=== PATIENT | female | born 1950 | race Caucasian/White ===

== ENCOUNTER 2016-08-11 14:23 | Emergency (ER) | payer OTHER ==
[~2016-08-11] VITALS: Ht 165.1 cm; Wt 62.6 kg
[~2016-08-11 14:23] MED LIST: AMBIEN10 M1 JT; CYCLOBENZAPRINE5 M3 PO; EFFEXOR XR150 M1 PO; HYDROCODONE BIT1 T11 PO; KLONOPIN1 M1 PO; VICODIN ES 7501 TAB PO; VISTARIL25 MG PO
[2016-08-11] MEDS ORDERED: GUAIFENESIN600 MG PO (14:29)
[2016-08-11] MEDS ORDERED: DEPAKOTE500 M1 PO (14:29)
[2016-08-11 15:09] LABS: BASO % 0.3 % (0.0-1.0); EOS # 0.1 10*3/uL (0.0-0.4); HEMATOCRIT 40.7 % (37.0-47.0); HEMOGLOBIN 13.3 g/dl (12.0-16.0); IG # 0.1 10*3/uL (0.0-0.1); LYMPH # 2.4 10*3/uL (1.3-4.4); LYMPH % 25.8 % (27.0-41.0); MEAN CELL VOLUME 91.5 fl (81.0-99.0); MEAN CORPUSCULAR HGB 29.9 pg (27.0-31.0); MEAN CORPUSCULAR HGB CONC 32.7 g/dl (33.0-37.0); MEAN PLATELET VOLUME 11.1 fl (9.6-12.3); NEUT # 5.8 10*3/uL (2.3-7.9); NEUT % 61.1 % (47.0-73.0); PLATELET COUNT AUTOMATED 252 10*3/uL (130-400); RED BLOOD COUNT 4.45 10*6/uL (4.10-5.10); WHITE BLOOD COUNT 9.5 10*3/uL (4.8-10.8)
[2016-08-11 15:25] LABS: BUN 8 mg/dl (7-24); CARBON DIOXIDE 25 mmol/L (21-32); CHLORIDE 108 mmol/L (98-107); EST GLOM FILT AFRICAN AMERICAN > 60 ml/min; GLUCOSE 150 mg/dL (65-99); POTASSIUM 3.9 mmol/L (3.5-5.1); SODIUM 144 mmol/L (136-145)
[2016-08-11 15:52] VITALS: BP 158/93
[2016-08-11] MEDS ORDERED: ZITHROMAX250 MG PO (16:26)
[2016-08-11] MEDS ORDERED: DELTASONE20 M1 PO (16:26)
== END 2016-08-11 17:44 | disposition home or self-care (01) ==
LOC: ED 14:23
PROVIDERS: Emergency Medicine
DX: J20.9 Acute bronchitis, unspecified (principal); F17.200 Nicotine dependence, unspecified, uncomplicated; Z88.0 Allergy status to penicillin; Z88.1 Allergy status to other antibiotic agents; Z88.6 Allergy status to analgesic agent; Z79.899 Other long term (current) drug therapy

== ENCOUNTER → 2016-10-15 | Outpatient (CLI) | payer OTHER ==
[~2016-10-15] MED LIST changes: +DELTASONE20 M1 PO; +DEPAKOTE500 M1 PO; +GUAIFENESIN600 MG PO; +ZITHROMAX250 MG PO
[2016-10-15 11:15] LABS: HEMATOCRIT 40.8 % (37.0-47.0); HEMOGLOBIN 13.6 g/dl (12.0-16.0); MEAN CELL VOLUME 91.1 fl (81.0-99.0); MEAN CORPUSCULAR HGB 30.4 pg (27.0-31.0); MEAN CORPUSCULAR HGB CONC 33.3 g/dl (33.0-37.0); MEAN PLATELET VOLUME 10.3 fl (9.6-12.3); RED BLOOD COUNT 4.48 10*6/uL (4.10-5.10); RED CELL DISTRI WIDTH 13.4 % (0-14.5); WHITE BLOOD COUNT 7.9 10*3/uL (4.8-10.8)
[2016-10-15 11:41] LABS: ALBUMIN 3.7 gm/dl (3.1-4.5); ALKALINE PHOSPHATASE 65 U/L (45-117); BILIRUBIN, DIRECT < 0.1 mg/dL (0.0-0.2); BILIRUBIN, TOTAL 0.2 mg/dl (0.2-1.0); SGOT/AST 19 IU/L (3-35); SGPT/ALT 26 U/L (12-78); TOTAL PROTEIN 6.9 gm/dL (6.4-8.2)
[2016-10-19 00:09] LABS: HEPATITIS C QNT HCV Not Detected IU/mL (.)
== END | disposition home or self-care (01) ==
LOC: LAB 10:36
PROVIDERS: Psychiatry & Neurology Psychiatry
DX: F31.81 Bipolar II disorder (principal); Z86.19 Personal history of other infectious and parasitic diseases

== ENCOUNTER → 2017-01-16 | Outpatient (CLI) | payer OTHER | END | disposition home or self-care (01) | LOC: LAB 15:52 | DX: F31.81 Bipolar II disorder (principal) ==

== ENCOUNTER → 2017-05-22 | Outpatient (CLI) | payer OTHER ==
[2017-05-22 13:22] LABS: HEMATOCRIT 42.9 % (37.0-47.0); HEMOGLOBIN 14.1 g/dl (12.0-16.0); MEAN CELL VOLUME 90.9 fl (81.0-99.0); MEAN CORPUSCULAR HGB 29.9 pg (27.0-31.0); MEAN CORPUSCULAR HGB CONC 32.9 g/dl (33.0-37.0); MEAN PLATELET VOLUME 10.8 fl (9.6-12.3); RED BLOOD COUNT 4.72 10*6/uL (4.10-5.10); RED CELL DISTRI WIDTH 13.2 % (0-14.5); WHITE BLOOD COUNT 8.5 10*3/uL (4.8-10.8)
[2017-05-22 13:50] LABS: ALBUMIN 3.9 gm/dl (3.1-4.5); ALKALINE PHOSPHATASE 82 U/L (45-117); BILIRUBIN, DIRECT < 0.1 mg/dL (0.0-0.2); SGOT/AST 36 IU/L (3-35); SGPT/ALT 35 U/L (12-78); TOTAL PROTEIN 7.5 gm/dL (6.4-8.2); VALPROIC ACID (DEPAKENE) 25.8 ug/ml (50-100)
== END | disposition home or self-care (01) ==
LOC: LAB 12:41
PROVIDERS: Psychiatry & Neurology Psychiatry
DX: F31.81 Bipolar II disorder (principal)

== ENCOUNTER 2017-07-01 15:14 | Emergency (ER) | payer OTHER ==
[~2017-07-01] VITALS: Ht 165.1 cm; Wt 62.6 kg
[2017-07-01 15:15] VITALS: BP 166/93
== END 2017-07-01 17:35 | disposition home or self-care (01) ==
LOC: ED 15:14
DX: S16.1XXA Strain of muscle, fascia and tendon at neck level, initial encounter (principal); F17.200 Nicotine dependence, unspecified, uncomplicated; Z88.0 Allergy status to penicillin; Z88.1 Allergy status to other antibiotic agents; Z88.6 Allergy status to analgesic agent; Z79.899 Other long term (current) drug therapy; V89.2XXA Person injured in unspecified motor-vehicle accident, traffic, initial encounter; Y93.89 Activity, other specified; Y92.413 State road as the place of occurrence of the external cause; Y99.8 Other external cause status

== ENCOUNTER 2018-05-20 10:41 | Emergency (ER) | payer OTHER ==
[~2018-05-20] VITALS: Ht 165.1 cm; Wt 54.4 kg
[2018-05-20 10:42] VITALS: BP 155/94
[2018-05-20] MEDS ORDERED: SEPTDS PO (11:56)
== END 2018-05-20 12:15 ==
LOC: ED 10:41
DX: L02.214 Cutaneous abscess of groin (principal); Z88.0 Allergy status to penicillin; Z88.6 Allergy status to analgesic agent; Z88.1 Allergy status to other antibiotic agents; Z79.899 Other long term (current) drug therapy; Z90.711 Acquired absence of uterus with remaining cervical stump

== ENCOUNTER → 2018-08-11 | Outpatient (CLI) | payer OTHER ==
[~2018-08-11] MED LIST changes: +SEPTDS PO
[2018-08-11 11:28] LABS: HEMOGLOBIN 13.8 g/dl (12.0-16.0); MEAN CELL VOLUME 99.3 fl (81.0-99.0); MEAN CORPUSCULAR HGB 31.9 pg (27.0-31.0); MEAN CORPUSCULAR HGB CONC 32.1 g/dl (33.0-37.0); MEAN PLATELET VOLUME 10.2 fl (9.6-12.3); RED BLOOD COUNT 4.33 10*6/uL (4.10-5.10); RED CELL DISTRI WIDTH 13.2 % (0-14.5); WHITE BLOOD COUNT 7.8 10*3/uL (4.8-10.8)
[2018-08-11 12:12] LABS: ALBUMIN 3.3 gm/dl (3.1-4.5); ALKALINE PHOSPHATASE 85 U/L (45-117); BILIRUBIN, DIRECT < 0.1 mg/dL (0.0-0.2); SGOT/AST 49 IU/L (3-35); SGPT/ALT 52 U/L (12-78); TOTAL PROTEIN 6.9 gm/dL (6.4-8.2)
[2018-08-11 12:17] LABS: VALPROIC ACID (DEPAKENE) 70.3 ug/ml (50-100)
== END | disposition home or self-care (01) ==
LOC: LAB 11:00
PROVIDERS: Psychiatry & Neurology Psychiatry
DX: F31.81 Bipolar II disorder (principal)

== ENCOUNTER → 2019-06-11 | Outpatient (CLI) | payer OTHER ==
[~2019-06-11] MED LIST changes: +CIPROFLOXACIN750 MG PO; +FLAGYL500 MG PO; +LISINOPRIL5 MG PO; +MAGNESIUM; +MELATONIN10 M2 PO; +MILK THISTLE; +MULTIVITAMIN PO; +VITAMIN C PO
== END | disposition home or self-care (01) ==
LOC: US 15:30
DX: R22.31 Localized swelling, mass and lump, right upper limb (principal)

== ENCOUNTER → 2019-06-17 | Outpatient (CLI) | payer OTHER ==
[2019-06-17 12:42] LABS: BASO # 0.1 10*3/uL (0.0-0.1); BASO % 0.6 % (0.0-1.0); EOS # 0.2 10*3/uL (0.0-0.4); EOS % 2.6 % (1.0-4.0); HEMOGLOBIN 13.9 g/dl (12.0-16.0); LYMPH # 2.2 10*3/uL (1.3-4.4); LYMPH % 26.4 % (27.0-41.0); MEAN CELL VOLUME 93.7 fl (81.0-99.0); MEAN CORPUSCULAR HGB 30.3 pg (27.0-31.0); MEAN CORPUSCULAR HGB CONC 32.3 g/dl (33.0-37.0); MEAN PLATELET VOLUME 10.8 fl (9.6-12.3); MONO # 0.9 10*3/uL (0.1-1.0); MONO % 10.2 % (3.0-9.0); NEUT % 59.8 % (47.0-73.0); PLATELET COUNT AUTOMATED 296 10*3/uL (130-400); RED BLOOD COUNT 4.59 10*6/uL (4.10-5.10); RED CELL DISTRI WIDTH 12.8 % (0-14.5); WHITE BLOOD COUNT 8.3 10*3/uL (4.8-10.8)
[2019-06-17 13:17] LABS: ALBUMIN 3.9 gm/dl (3.1-4.5); ALKALINE PHOSPHATASE 96 U/L (45-117); BUN 13 mg/dl (7-24); CHLORIDE 106 mmol/L (98-107); CREATININE 1.03 mg/dL (0.55-1.02); POTASSIUM 3.8 mmol/L (3.5-5.1); SGOT/AST 43 IU/L (3-35); SGPT/ALT 42 U/L (12-78); SODIUM 139 mmol/L (136-145); TOTAL PROTEIN 7.6 gm/dL (6.4-8.2); VALPROIC ACID (DEPAKENE) 4.2 ug/ml (50-100)
== END | disposition home or self-care (01) ==
LOC: LAB 12:14
PROVIDERS: Registered Nurse
DX: F31.9 Bipolar disorder, unspecified (principal)

== ENCOUNTER → 2019-10-04 | Outpatient (CLI) | payer OTHER | END | disposition home or self-care (01) | LOC: RAD 10:46 | DX: M25.551 Pain in right hip (principal) ==

== ENCOUNTER → 2020-01-01 | Outpatient (CLI) | payer OTHER | END | disposition home or self-care (01) | LOC: MRI 12:44 | DX: S46.911A Strain of unspecified muscle, fascia and tendon at shoulder and upper arm level, right arm, initial encounter (principal); M19.011 Primary osteoarthritis, right shoulder; M25.411 Effusion, right shoulder; X58.XXXA Exposure to other specified factors, initial encounter; Y93.89 Activity, other specified; Y92.89 Other specified places as the place of occurrence of the external cause; Y99.8 Other external cause status ==

== ENCOUNTER 2020-04-09 16:15 | Inpatient (IN) | payer OTHER ==
[~2020-04-09] VITALS: Ht 165.1 cm; Wt 57.6 kg
[~2020-04-09 16:15] MED LIST changes: -MILK THISTLE; +MILK THISTLE PO
[2020-04-09 16:20] VITALS: BP 133/78
--- NOTE | 2020-04-09 17:20 | NUR ---
OFFICER THOMAS HERE TO ASK PATIENT A QUESTION
[2020-04-09 17:35] LABS: BACTERIA 3+; BILIRUBIN NEGATIVE; BLOOD NEGATIVE (NEGATIVE); CLARITY CLEAR (CLEAR); COLOR DARK YELLOW (YELLOW); EPITHELIAL CELLS 16-20; GLUCOSE NEGATIVE; HYALINE CAST 21-30; KETONE 1+; LEUKO ESTERASE 1+ (NEGATIVE); NITRITE NEGATIVE (NEGATIVE); PH 5.5 (4.5-8.0); SPECIFIC GRAVITY 1.025 (1.001-1.030); URINE AMPHETAMINES > 1000 (1000ng/ml); URINE BARBITURATES < 200 (200ng/ml); URINE BENZODIAZEPINES < 200 (200ng/ml); URINE CANNABINOIDS (THC) > 50 (50ng/ml); URINE COCAINE < 300 (300ng/ml); URINE METHADONE < 300 (300ng/ml); URINE OPIATES < 300 (300ng/ml)
[2020-04-09 17:40] LABS: URINE PHENCYCLIDINE < 25 (25ng/ml)
--- NOTE | 2020-04-09 17:55 | NUR ---
PATIENT BEING SEEN BY DANIE SHETH
--- NOTE | 2020-04-09 18:01 | NUR ---
WILL DO EKG SOON PATIENT IS DONE BEING INTERVIEWED
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
[2020-04-09 18:18] LABS: BASO # 0.1 10*3/uL (0.0-0.1); BASO % 0.5 % (0.0-1.0); EOS # 0.1 10*3/uL (0.0-0.4); EOS % 0.9 % (1.0-4.0); HEMATOCRIT 40.7 % (37.0-47.0); LYMPH # 2.9 10*3/uL (1.3-4.4); LYMPH % 29.1 % (27.0-41.0); MEAN CELL VOLUME 92.1 fl (81.0-99.0); MEAN CORPUSCULAR HGB 29.2 pg (27.0-31.0); MEAN CORPUSCULAR HGB CONC 31.7 g/dl (33.0-37.0); MEAN PLATELET VOLUME 11.4 fl (9.6-12.3); MONO # 1.1 10*3/uL (0.1-1.0); MONO % 11.3 % (3.0-9.0); NEUT # 5.7 10*3/uL (2.3-7.9); NEUT % 57.9 % (47.0-73.0); PLATELET COUNT AUTOMATED 217 10*3/uL (130-400); RED BLOOD COUNT 4.42 10*6/uL (4.10-5.10); RED CELL DISTRI WIDTH 12.9 % (0-14.5); WHITE BLOOD COUNT 9.9 10*3/uL (4.8-10.8)
--- NOTE | 2020-04-09 18:25 | NUR ---
telephone call to the psych unit here and gave them a referral, all of her blood work is not back yet so when it is we will send them the rest of the information.
[2020-04-09 18:37] LABS: ALBUMIN 3.8 gm/dl (3.1-4.5); ALKALINE PHOSPHATASE 71 U/L (45-117); BUN 17 mg/dl (7-24); CHLORIDE 111 mmol/L (98-107); CREATININE 0.98 mg/dL (0.55-1.02); POTASSIUM 3.8 mmol/L (3.5-5.1); SGOT/AST 25 IU/L (3-35); SGPT/ALT 21 U/L (12-78); SODIUM 141 mmol/L (136-145); TOTAL PROTEIN 7.4 gm/dL (6.4-8.2)
[2020-04-09 18:38] LABS: ACETAMINOPHEN (TYLENOL) < 5.0 ug/ml (10-30); ETHYL ALCOHOL < 3.0 mg/dl (<3)
--- NOTE | 2020-04-09 19:00 | NUR ---
Per Whitney Whitehead no sitter needed at this time.
--- NOTE | 2020-04-09 19:06 | NUR ---
Transfer of care from Jane nayak.
[2020-04-09 20:08] VITALS: BP 133/71
--- NOTE | 2020-04-09 20:24 | NUR ---
DR COX ON UNIT. NOTIFIED OF ADMISSION. STATES SHE WILL SEE PT IN ED.
--- NOTE | 2020-04-09 21:45 | NUR ---
Per pt does not need treated for uti,
--- NOTE | 2020-04-09 21:46 | NUR ---
Report given to [facility] at this time.
--- NOTE | 2020-04-09 22:00 | NUR ---
PERMISSION FOR ADMISSION FROM [facility] RECIEVED. VERIFIED BY Regina ZUÑIGA RN
--- NOTE | 2020-04-09 22:00 | NUR ---
Per pt she is not on antibiotc and does want nicotine patch at this time.
--- NOTE | 2020-04-09 22:27 | NUR ---
Nicotine patch placed on left upper arm at this time.
--- NOTE | 2020-04-09 22:40 | NUR ---
Per pt does not need treated for uti,
--- NOTE | 2020-04-09 23:00 | NUR ---
NAV DURAN a 69 year old F admitted via wheel chair from the EMERGENCY ROOM as a voluntary admission. Arrived on unit at 2300PM. ALLERGIES: EES,PCN, TORADOL. Vital signs are: [id number] 148/82. The client signed the following forms with stated understanding: Authorization For The Release of Medical Information, Clothing List, Consent to Voluntary Admission and Hospitalization, Consent and Release Forms/Receipt of Rights, Acknowledgement of Advance Directive Information, Behavioral Health Consent Form, and Informed Consent of Medications. Admitted under the services of Dr. MICHELLE DUDLEY,[facility]. A search was conducted and hazardous articles were removed. Client was oriented to the unit. DIANDRA ATKINS
--- NOTE | 2020-04-09 23:08 | NUR ---
Report given to [facility] at this time.
--- NOTE | 2020-04-09 23:12 | NUR ---
Report given to Roxanne nayak from [facility].Pt taken to unit at this time and all belongings with nurse.
--- NOTE | 2020-04-09 23:12 | NUR ---
Family aware of pt going to [facility] at this time.
[2020-04-09] MEDS ORDERED: GUMMI BEAR MUL1 EACH PO (23:35)
[2020-04-09] MEDS ORDERED: IBU800 MG PO (23:38)
[2020-04-09 23:59] VITALS: BP 148/82
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
--- NOTE | 2020-04-10 01:06 | NUR ---
CLIENT CAME TO DESK ROLLING HEAD AND EYES SAYING "THEIR OUT THERE UP ON THE HILLSIDE". REASSURANCE AND EMOTIONAL SUPPORT PROVIDED. WILL CONTINUE TO MONITOR
--- NOTE | 2020-04-10 05:51 | NUR ---
DR LLOYD NOTIFIED OF HOME MEDS NEEDING ORDERED
--- NOTE | 2020-04-10 06:30 | NUR ---
SLEPT PAST 2AM.
[2020-04-10 06:48] LABS: ALKALINE PHOSPHATASE 64 U/L (45-117); BUN 21 mg/dl (7-24); CHLORIDE 110 mmol/L (98-107); CHOLESTEROL 156 mg/dL (<200); CREATININE 0.85 mg/dL (0.55-1.02); HDL CHOLESTEROL 53 mg/dl (40-60); LDL CHOLESTEROL 87 mg/dL (9-159); POTASSIUM 3.4 mmol/L (3.5-5.1); SGOT/AST 14 IU/L (3-35); SGPT/ALT 20 U/L (12-78); SODIUM 141 mmol/L (136-145); TOTAL PROTEIN 5.7 gm/dL (6.4-8.2); TRIGLYCERIDES 78 mg/dl (<150); VLDL CHOLESTEROL 16 mg/dL (6-40)
[2020-04-10 07:46] VITALS: BP 112/61
--- NOTE | 2020-04-10 09:55 | NUR ---
DR. BERMEO NOTIFIED OF ABNORMAL LABS POTASSIUM 3.4.
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
--- NOTE | 2020-04-10 10:56 | NUR ---
DR. ROPER ON UNIT TO ASSESS PT.
--- NOTE | 2020-04-10 11:32 | NUR ---
Contacted [facility] regarding this patient. They are not familiar with her and do not have any active cases for her at this time. discharge plan undecided.
--- NOTE | 2020-04-10 11:37 | NUR ---
IP 4 days deep per Patricia at [facility], NRD 04/13. Ref # [id number]
--- NOTE | 2020-04-10 11:51 | NUR ---
PT C/O LOW BACK PAIN 10/ PRN MOTRIN GIVEN PER ORDER.
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
--- NOTE | 2020-04-10 13:30 | NUR ---
PATIENT RESTING IN BED, THERAPY IN FOR SESSION. PATIENT COMPLAINING OF BEING DIZZY. OTHRO OBTAIN: LAYING 104/62, SITTING 110/68 AND STANDING 108/66. PATIENT ENCOURAGED TO DRINK MORE FLUIDS AND CHANGE POSITIONS SLOWER. EDUCATION PROVIDED AND EFFECTIVE.
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
--- NOTE | 2020-04-10 15:10 | NUR ---
Occupational Therapy evaluation completed on 3N with full evaluation to follow. Recommend occupational therapy per plan of care and return home upon discharge. Thank you for this referral. Jennifer Campo OTR/L
--- NOTE | 2020-04-10 15:42 | NUR ---
PM GROUP PT ATTENDED AFTERNOON GROUP THERAPY AND PARTICIPATED IN ANY ACTIVITY OFFERED. PT WAS PLEASANT AND TALKATIVE. PT EXPRESSED NO PARANOID DELUSIONS WHILE IN GROUP.
[2020-04-10 20:05] VITALS: BP 125/75
--- NOTE | 2020-04-10 22:23 | NUR ---
P-PARANOID DELUSIONS, VISUAL HALLUCINATIONS. I-PROVIDE 1:1 WITH THERAPEUTIC INTERVENTIONS. PRESENT REALITY AND REORIENT. ENCOURAGE MEDICATION COMPLIANCE AND EDUCATE. MONITOR SLEEP. R-PATIENT ALERT AND ORIENTED X4. DURING 1:1 PATIENT WAS LOOKING OUT OF WINDOW IN HALLWAY AND STATED TO THIS RN "IM JUST OVER HERE HAVING HALLUCINATIONS". WHEN QUESTIONED TO WHAT, PATIENT STATED "ITS THE WILD! THEY ARE WATCHING ME, HAVE YOU EVER SEEN FLASHLIGHTS WALKING AROUND, WELL THEY ARE RIGHT NOW, RIGHT OUTSIDE, THEY HAVE LEGS AND EVERYTHING". WHEN ASKED IF SHE UNDERSTANDS THAT SHE IS HAVING HALLUCINATIONS, PT THEN STATED "OH, THIS IS VERY REAL, THESE AREN'T HALLUCINATIONS AT ALL, ITS REAL! BEFORE I CAME HERE THE WILD WAS IN MY YARD CUTTING DOWN LILAC BUSHES SO THEY CAN HIDE IN THEM, THEY ALSO BUILT LITTLE HUTS/IGLOO TYPE THINGS IN MY YARD TO WATCH ME, THEY EVEN HAVE FLASH LIGHTS ON THEIR HEADS AND ON THEIR BELTS, ALL KINDS OF EQUIPMENT, AND YOU KNOW WHAT ELSE, SOMETIMES THEY PEE PEE IN MY BED". PT UNRECEPTIVE TO REALITY PRESENTATION OR REDIRECTION. PT OTHERWISE CALM, PLEASANT, AND INTERACTIVE THIS HS, ISOLATIVE TO SELF AT TIMES. PT DENIES SI/HI OR PAIN. PT MEDICATION COMPLIANT WITHOUT DIFFICULTY AFTER REVIEW. PT AMBULATORY WITH A STEADY GAIT, CONTINENT OF BOWEL AND BLADDER, INDEPENDENT IN ADLS. PT CURRENTLY LAYING DOWN WITH EYES CLOSED, RESPIRATIONS EASY AND REGULAR. NO DISTRESS NOTED. P-CONTINUE TO MONITOR MOOD AND BEHAVIORS. MAINTAIN Q 15 MIN CHECKS AND PRN FOR SAFETY.
--- NOTE | 2020-04-11 03:43 | NUR ---
24 HOUR CHART CHECK COMPLETED.
--- NOTE | 2020-04-11 05:34 | NUR ---
PATIENT OBSERVED ON Q 15 MIN CHECKS TO HAVE SLEPT APPROX 8 HOURS UNINTERRUPTED. NO DISTRESS NOTED.
[2020-04-11 06:58] VITALS: BP 119/61
--- NOTE | 2020-04-11 12:32 | NUR ---
P: DEPRESSED MOOD AND ANXIOUS, COMPLAINS OF NOT BEING ABLE TO SLEEP. IMPROVEMENT NOTED. I: ONE ON ONE FOR EMOTIONAL SUPPORT, EDUCATION OF SELF CARE AND DRINKING MORE FLUIDS. ENCOURAGED TO PARTICIPATE IN GROUP SESSIONS AND REORIENT TO REALITY NEEDED. R: EFFECTIVE. PATIENT IS ALERT X4, ABLE TO VOICE NEEDS. DENIES HALLUCINATIONS, DELUSIONS, HI/SI OR PAIN. DEPRESSED AND ANXIOUS. MEDICAITON COMPLAINT WITH EDUCATION PROVIDED. Q 15 MINUTE SAFETY CHECKS MAINTAINED. INDEPENDENT WITH ACTIVITIES OF DAILY LIVING. CONTINENT OF BOWEL AND BLADDER. SET UP FOR MEALS, INTAKES ARE GOOD WITH ADEQUATE FLUIDS. AMBULATORY WITH STEADY GAIT. P: CONTINUE TO MONITOR FOR HALLUCINATIONS, DELUSIONS. PROVIDE ONE ON ONE FOR EMOTIONAL SUPPORT, REORIENT TO REALITY AND ENCOURAGE GROUP PARTICIPATION.
--- NOTE | 2020-04-11 15:54 | NUR ---
Shift chart check completed.
--- NOTE | 2020-04-11 16:41 | NUR ---
PNEUMOCCOCAL VACCINE 0.5ML IN LEFT DELTOID AND TOLERATED WELL.
[2020-04-11 20:00] VITALS: BP 123/66
--- NOTE | 2020-04-11 23:42 | NUR ---
P-PARANOID DELUSIONS, VISUAL HALLUCINATIONS. I-PROVIDE 1:1 WITH THERAPEUTIC INTERVENTIONS. PRESENT REALITY AND REORIENT. ENCOURAGE MEDICATION COMPLIANCE AND EDUCATE. MONITOR SLEEP. R-PATIENT ALERT AND ORIENTED X4. PT CALM, PLEASANT, AND INTERACTIVE. PT SAT IN DINING ROOM COLORING AND WATCHING TV WITH PEERS AT BEGINNING OF SHIFT. PT STATED THAT SHE FEELS A LITTLE BETTER TODAY, THAT SHE HAS AVOIDED LOOKING OUT OF WINDOWS FOR THE MOST PART THROUGHOUT THE DAY BUT WHEN SHE DOES, SHE STILL SEES THE WILD WATCHING HER AND FLASHLIGHTS WALKING AROUND WITH LEGS AND FEET. PT CONTINUES TO BE UNRECEPTIVE TO REALITY PRESENTATION AND STATES "THIS IS VERY REAL, ITS NOT BAD WHILE IM HERE THOUGH, NOT MANY WATCH ME, THERE IS WAY MORE OF THEM THAT WATCHES ME FROM AT HOME, THE WILD". PT DENIES SI/HI, ANXIETY, OR PAIN. PT MEDICATION COMPLIANT WITHOUT DIFFICULTY AFTER REVIEW. PT AMBULATORY WITH A STEADY GAIT, CONTINENT OF BOWEL AND BLADDER, INDEPENDENT IN ADLS. PT CURRENTLY LAYING DOWN WITH EYES CLOSED, RESPIRATIONS EASY AND REGULAR. NO DISTRESS NOTED. P-CONTINUE TO MONITOR MOOD AND BEHAVIORS. MAINTAIN Q 15 MIN CHECKS AND PRN FOR SAFETY.
--- NOTE | 2020-04-12 05:51 | NUR ---
PATIENT OBSERVED ON Q 15 MIN CHECKS TO HAVE SLEPT APPROX 10 HOURS THROUGHOUT THE NIGHT UNINTERRUPTED. NO DISTRESS NOTED.
--- NOTE | 2020-04-12 05:59 | NUR ---
24 HOUR CHART CHECK COMPLETED.
[2020-04-12 07:52] VITALS: BP 142/74
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
[2020-04-12 19:47] VITALS: BP 148/66
--- NOTE | 2020-04-12 22:38 | NUR ---
24 HR chart check completed.
--- NOTE | 2020-04-13 00:46 | NUR ---
PT WAS IN DINING ROOM READING AND LOOKING AT A MAGAZINE WITH OTHER PATIENTS. pLEASANT AND INTERACTIVE WITH BOTH STAFF AND PEERS. ATE SNACK AND WENT TO BED. WAS MED COMPLIANT. STATES SHE FEELS BETTER. NO HALLUCINATIONS OR DELUSIONS NOTED. NO SI/HI NOTED. HAS BEEN RESTING IN BED WITH EYES CLOSED SINCE 2129. WILL CONTINUE TO OBSERVEAND MONITOIR..ENCOURAGE MED COMPLIANCE AND 1:1.
--- NOTE | 2020-04-13 06:08 | NUR ---
PATIENT HAS SLEPT 8 HOURS.
--- NOTE | 2020-04-13 07:30 | NUR ---
OT NOTE Prior to OT session, therapist called U and talked to nurse Jen and got permission to treat pt. RUBBER TIRE AND TUBES SUPERVISOR and nursing both present for observation only. Upon arrival pt was sitting in chair in the dining hernandez agreeable to 15 minute OT session. Identified by name and date of birthwith no complaints. Functional mobility from dining hernandez to bedroom bathroom CGA without assistive device. Pt stood sink side unsupported to wash hands and face at CGA. Pt was able to bend at waist and pick ADL objects off ground in wash basin. Stand balance good-. Transferring on and off toilet CGA. Functional mobility from bathroom back to dining hernandez CGA. Pts dynamic stand balance was challenged by weight shifting/crossing midline at CGA, however while crossing over to right side pt became off balance requiring Ferdinand to correct. Balance F-. Pt left in dining hernandez with MHW present. Continue d/c recommended home. THO Peña/WILMAN Hutchins/Cheri
[2020-04-13 07:52] VITALS: BP 142/74
--- NOTE | 2020-04-13 08:30 | NUR ---
Treatment Plan meeting was held this a.m. with Dr. Seymour, FELIPE Samaniego, RN, AT, SUPERVISOR SAWING AND ASSEMBLY-S and Covering Machine Operator Helper. Plan for discharge at the end of the week. Pt. will return home at discharge.
--- NOTE | 2020-04-13 11:35 | NUR ---
AM GROUP PT WAS PRESENT FOR MORNING GROUP THERAPY SITTING AT A TABLE COLORING AND SOCIALIZING WITH NURSING STUDENTS. CONVERSATION WAS APPROPRIATE AND IN CONTEXT. PT EXPRESSED NO A V HALLUCINATIONS WHILE IN GROUP.
--- NOTE | 2020-04-13 12:53 | NUR ---
Spoke to Finn hein [facility] regarding CCR. IP 2 additional days deep, NRD 04/15.
--- NOTE | 2020-04-13 15:37 | NUR ---
PM GROUP PT ATTENDED AFTERNOON GROUP THERAPY AND PARTICIPATED BY PLAYING [employer] AND SOCIALIZING WITH NURSING STUDENTS. PT EXPRESSED NO PARANOIA OR HALLUCINATIONS WHILE IN GROUP.
--- NOTE | 2020-04-13 18:06 | NUR ---
PT A&OX4. STABLE MOOD. CALM AND INTERACTIVE WITH STAFF, PEERS, AND NURSING STUDENTS. NO HALLUCINATIONS OR DELUSIONS NOTED THIS SHIFT. NO TEARFUL EPISODES NOTED. PT WAS ATTEMPTING TO CALM ANOTHER PT AND DANCING WITH A PEER IN THE DINNINGROOM AND HALLWAY. 1:1 PROVIDED. BEHAVIORS MONITORED WITH Q15 MINUTE SAFETY CHECKS. MEDICATION COMPLIANT WITHOUT DIFFICULTY. CONTINUE TO MONITOR BEHAVIORS WITH Q15 MINUTE SAFETY CHECKS AND PROVIDE 1:1 FOR THERAPEUTIC COMMUNICATION. SEE [facility] FLOWSHEET FOR SPECIFIC MONITORING.
[2020-04-13 19:08] VITALS: BP 142/82
--- NOTE | 2020-04-13 22:53 | NUR ---
Patient alert and oriented x4, Mood calm,cooperative but isolative at times. Patient denies any SI/HI or hallucinations. No s/s of any responding to internal stimuli noted at this time. Patient compliant with HS medications without any difficulty. Provided 1:1 for emotional support. Redirected/reoriented when needed. Plan to continue to encourage medication compliance. Also continue to provide emotional support and continue to redirect/reorient when needed/appropriate. Will also monitor moods/behaviors. Q 15 minute safety checks continued and maintained. See [facility] flowsheet for further documentation.
--- NOTE | 2020-04-13 23:49 | NUR ---
Medicated with Motrin po prn for c/o chronic lower back pain rating 10/10. Will monitor effectiveness.
--- NOTE | 2020-04-14 06:36 | NUR ---
Patient slept approx. 5 hours throughout shift. Q 15 minute safety checks continued and maintained.
--- NOTE | 2020-04-14 07:20 | NUR ---
Prior to Ot session therapist called U and talked to nurse doyle to get permission to treat pt. TELEGRAPH OFFICE ROUTE AIDE and nursing both present for observation only. Upon arrival pt was laying supine in bed agreeable to 25 minute OT session. Transfer from supine to EOB SBA. Pt was able to fix hospital socks bending at waist with CGA. sitting balance good-. Sit-stand from EOB CGA however required Ferdinand due to retrograde posture causing pt to lose balance. Functional mobility from EOB to bathroom CGA. Pt stood sink side unupported to wash hands, brush hair, and brush teeth with CGA. Pt bent over to retrieve ADL products from wash basin. Balance good-. Functional mobility from bathroom to hallway, down to dining hernandez CGA. Pts balance challenged by weight shifting/crossing midline at CGA. balance F+. Pt left in dining hernandez with MHW present. Continue d/c recommended home. THO Peña/WILMAN Hutchins/Cheri
[2020-04-14 07:43] VITALS: BP 135/77
--- NOTE | 2020-04-14 08:30 | NUR ---
Discharge Plans discussed Prior to Patient Access Specialist arrival to the Unit. Plan for discharge . Pt. will return home at discharge.
--- NOTE | 2020-04-14 11:46 | NUR ---
AM GROUP PT ATTENDED MORNING GROUP THERAPY AND PARTICIPATED IN ALL ACTIVITIES OFFERED. PT WAS TALKATIVE WITH PEERS AND THIS CHRONOMETER TESTER BUT ON TASK. PT EXPRESSED NO DELUSIONS OR HALLUCINATIONS WHILE IN GROUP.
--- NOTE | 2020-04-14 12:27 | NUR ---
PATIENT IS ALERT AND ORIENTED TO PERSON, PLACE, TIME AND SITUATION. MOOD IS STABLE WITH "PERIODS OF ANXIETY" PER PATIENT. PATIENT DENIES SADNESS AND DEPRESSION. PATIENT IS OBSESSIVE WITH WANTING TO GO HOME. PT IS CALM, PURPOSEFUL, INTERACTIVE AND PARTICIPATIVE DURING ASSESSMENT. PATIENT DENIES ANY HALLUCINATIONS, BUT SHE DID STATE THAT SHE HAD CATS ATTACKING HER DURING HER SLEEP AND UNDERSTOOD THAT IT ACTUALLY DID NOT OCCUR. DENIES ANY PARANOIA. PATIENT DENIES ANY SUICIDAL IDEATION OR HOMICIDAL IDEATION. PATIENT AMBULATES WITH STEADY GAIT. SET UP FOR MEALS. INTAKES ARE GOOD WITH ADEQUATE FLUIDS. PATIENT IS CONTINENT OF BOWEL AND BLADDER. PATIENT IS INDEPENDENT WITH ACTIVITIES OF DAILY LIVING. PATIENT IS MEDICATION COMPLIANT WITH EDUCATION. WILL MAINTAIN Q15 MINUTE SAFETY CHECKS. WILL CONTINUE TO MONITOR FOR BEHAVIORS, MOOD, HALLUCINATIONS AND DELUSIONS. PATIENT CONTINUES TO INTERACT WITH STAFF AND PEERS AND WILL ENCOURAGE THE CONTINUATION OF PARTICIPATING IN GROUP ACTIVITIES.
--- NOTE | 2020-04-14 15:48 | NUR ---
PM GROUP PT ATTENDED AFTERNOON GROUP THERAPY AND PARTICIPATED BY WORKING ON HER [employer]. PT WAS TALKATIVE AND IN GOOD SPIRITS. PT EXPRESSED NO PARANOID DELUSIONS OR HALLUCINATIONS WHILE IN GROUP.
[2020-04-14 20:00] VITALS: BP 139/91
--- NOTE | 2020-04-15 00:13 | NUR ---
P-PARANOID DELUSIONS, VISUAL HALLUCINATIONS. I-PROVIDE 1:1 WITH THERAPEUTIC INTERVENTIONS. PRESENT REALITY AND REORIENT. ENCOURAGE MEDICATION COMPLIANCE AND EDUCATE. MONITOR SLEEP. R-PATIENT ALERT AND ORIENTED X4. PT CALM, PLEASANT, AND INTERACTIVE. PT SAT IN DINING ROOM COLORING AND WATCHING TV WITH PEERS AT BEGINNING OF SHIFT. DURING 1:1 PATIENT STATES SHE IS MUCH BETTER, THAT SHE STILL BELIEVES THE WILD AND FLASHLIGHTS ARE STILL WATCHING HER WHEN SHE LOOKS OUT OF WINDOWS BUT NOT MUCH BEFORE, AND THAT SHE HAD A BAD DREAM LAST NIGHT ABOUT A CAT BUT IS OTHERWISE FEELING A LOT BETTER". PT DENIES SI/HI OR ANXIETY. PT MEDICATION COMPLIANT WITHOUT DIFFICULTY AFTER REVIEW. RECEIVED PRN MOM AT 2105 ORDERED FOR C/O FEELING CONSTIPATED, LAST BM RECORDED 04/13/20. PT ALSO RECEIVED PRN MOTRIN 800MG ORDERED AT 2105 FOR C/O LOWER BACK PAIN WITH A RATING 7/10. PT AMBULATORY WITH A STEADY GAIT, CONTINENT OF BOWEL AND BLADDER, INDEPENDENT IN ADLS. PT CURRENTLY LAYING DOWN WITH EYES CLOSED, RESPIRATIONS EASY AND REGULAR. NO DISTRESS NOTED. P-CONTINUE TO MONITOR MOOD AND BEHAVIORS. MAINTAIN Q 15 MIN CHECKS AND PRN FOR SAFETY.
--- NOTE | 2020-04-15 05:24 | NUR ---
24 HOUR CHART CHECK COMPLETED.
--- NOTE | 2020-04-15 05:34 | NUR ---
PATIENT OBSERVED ON Q 15 MIN CHECKS TO HAVE SLEPT APPROX 7 HOURS UNINTERRUPTED. NO DISTRESS NOTED.
--- NOTE | 2020-04-15 07:15 | NUR ---
OT NOTE Prior to session therapist called U and talked to quintin Wang to get permission to treat pt. MEDICAL TRANSCRIPTIONIST and nursing both present for observation only. Upon arrival pt was laying supine in bed agreeable to 15 minute OT session. Identified by name and date of with no complaints. Transfer supine to EOB SBA. While at EOB pt donned street shoes at SBA. Sitting balance was good-. Sit-stand CGA for safety. Functional mobility from EOB to bathroom CGA. Transferring on and off commode CGA with grab bar use for safety and support. Clothing management and hygiene both SBA. Pt stood sink side ubsupported to wash hands at CGA for safety. Standing balance good-. Functional mobility from bathroom to dining hernandez CGA for safety due to occasional unsteady stance. Pts dynamic stand balance was challenged by weight shifting/crossing midline at CGA. Balance F+. Pt left in dining hernandez with MHW present. Continue d/c recommended home. THO Peña/WILMAN Hutchins/Cheri
[2020-04-15 07:58] VITALS: BP 138/85
--- NOTE | 2020-04-15 08:30 | NUR ---
Treatment Plan meeting was held this a.m. with Dr. Seymour via telephone, FELIPE Samaniego, RN, AT, GM-S and Gaming Host. Plan for discharge Monday. Pt. will return Home at discharge.
--- NOTE | 2020-04-15 09:43 | NUR ---
DR ZEPEDA ON UNIT TO ASSESS PATIENT, UPDATE PROVIDED.
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
--- NOTE | 2020-04-15 11:16 | NUR ---
Spoke with Jackie Yang Coordinator at [facility] concerning Narcotics Anonymous Meetings. Currently there is a weekly group meeting being held at [facility] in [place] on Monday Evenings at 6:30. Patients have the option of Sitting in there Car or attending a Safe (Socially Distant Meeting with a Mask or face Covering in the [facility]). There is no sign up required and Patient would just need to Show up. Jackie states that they also Provide information on Narcan.
--- NOTE | 2020-04-15 11:46 | NUR ---
AM GROUP PT ATTENDED MORNING GROUP THERAPY AND PARTICIPATED BY WORKING ON HER BIRDHOUSE AND SOCIALIZING WITH STAFF AND PEERS. PT EXPRESSED NO DELUSIONS OR HALLUCINATIONS WHILE IN GROUP.
[2020-04-15 12:25] VITALS: BP 142/78
--- NOTE | 2020-04-15 13:08 | NUR ---
Discussed continued review stay with Finn at [facility], [facility] 04/14, additional days denied, sending for peer to peer, Danette Ochoa notified. Notified [facility] event planner.
--- NOTE | 2020-04-15 13:11 | NUR ---
Received Call from Kerline Luna RN Case Manager that Pt. is Denied from Today forward pending Peer to Peer which is set up with Danette Ochoa Nurse Practitioner to Complete. Will Follow tommorow for outcome.
--- NOTE | 2020-04-15 14:15 | NUR ---
MORTIN WAS EFFECTIVE. PATIENT STATES HER HEADACHE HAS RESOLVED. WILL CONTINUE TO MONITOR.
--- NOTE | 2020-04-15 15:09 | NUR ---
Individual time spent with pt this afternoon. Discussed discharge needs. Pt is agreeable to [facility]. Discussed support for drug use/addiciton such as NA or individual counseling. Pt denied the need for this. Pt stated, "I know what I got to do. It's time." Pt did share that she did attend a drug rehab program in the past and that it was helpful. Pt continued that she knows her drug use is tied to the of her . Pt shared further about this. Conversation focused on pt's continued grieving over the loss of her . Pt shared openly about the specifics of his and the immediate happenings after his . Pt was tearful as she shared. Empathized and offered support to pt. Discussed being "stuck in grief"/complicated grief. Educated pt about this and allowed pt to further share about her grief. Encouraged pt to work with a counselor after [facility] to heal from her grief. Also, during this meeting, pt spoke of when the police arrived at her home to bring her to [facility]. Pt confirmed that her nephew/[employer] Pritesh Chaudhary, who is also an [facility] assistant chief of police, has possession of all of her guns.
--- NOTE | 2020-04-15 15:56 | NUR ---
P: PATIENT DEALING WITH A HEADACHE TODAY D/T MEDICATION CHANGES, PER PATIENT. I: ONE ON ONE FOR EMOTIONAL SUPPORT, LOW STIMULATION, AND MEDICATIONS ADMINISTERED PER ORDER. R: EFFECTIVE. PATIENT IS ALERT AND ORIENTED TO PERSON, PLACE, TIME AND SITUATION. PATIENT DENIES ANY SADNESS/DEPRESSION/ANXIETY. MOOD IS STABLE. PATIENT IS GOAL DIRECTED. DENIES ANY HALLUCINATIONS OR DELUSIONS AND DOES NOT APPEAR TO BE RESPONDING TO ANY INTERNAL STIMULI. PATIENT DENIES SUICIDAL IDEATION AND HOMICIDAL IDEATION. PATIENT IS INDEPENDENT WITH ACTIVITIES OF DAILY LIVING. PATIENT IS CONTINET OF BLADDER AND CONTINENT OF BOWEL, WITH HER LAST BM 04/13. SET UP FOR MEALS. INTAKES ARE GOOD WITH ADEQUATE FLUIDS. PATIENT PARTICIPATES IN GROUP ACTIVITES REGULARLY AND SOCIALIZES WITH PEERS ON THE UNIT. MEDICATION COMPLIANT WITH EDUCATION. P: WILL CONTINUE TO MONITOR FOR ANY MOODS/BEHAVIORS/HALLUCINATIONS/DELUSIONS. Q15 MINUTE SAFETY CHECKS MAINTAINED. WILL CONTINUE TO ENCOURAGE MEDICATION COMPLIANCE, PARTICIPATING IN GROUP ACTIVITY AND CONTINUE TO SOCIALIZE WITH PEERS. WILL CONTINUE TO PROVIDE ONE ON ONE FOR EMOTIONAL SUPPORT.
--- NOTE | 2020-04-15 15:59 | NUR ---
PM GROUP PT ATTENDED AFTERNOON GROUP THERAPY AND PARTICIPATED BY WORKING ON HER BIRDHOUSE AND SOCIALIZING WITH THIS ARTIFICIAL FOLIAGE ARRANGER AND PEERS. PT EXHIBITED NO ADVERSE BEHAVIORS WHILE IN GROUP.
[2020-04-15 20:00] VITALS: BP 146/82
--- NOTE | 2020-04-15 21:35 | NUR ---
P-PARANOID DELUSIONS, VISUAL HALLUCINATIONS. I-PROVIDE 1:1 WITH THERAPEUTIC INTERVENTIONS. PRESENT REALITY AND REORIENT. ENCOURAGE MEDICATION COMPLIANCE AND EDUCATE. MONITOR SLEEP. R-PATIENT ALERT AND ORIENTED X4. PT CALM, PLEASANT, AND INTERACTIVE. PT SAT IN DINING ROOM INTERACTING WITH PEERS AND WATCHING TV AT BEGINNING OF SHIFT. DURING 1:1 PATIENT STATED THAT SHE HAD A DECENT DAY TODAY, THAT SHE ONLY GOT UPSET ONCE BECAUSE ANOTHER PEER THREW HER PICTURE SHE COLORED AWAY BUT UNDERSTANDS IT WASNT ON PURPOSE, OTHER THAN THAT SHE IS DOING WAY BETTER. PT ALSO STATED THAT ALTHOUGH SHE STILL SEES THE WILD AND FLASHLIGHTS AT TIMES WHEN LOOKING OUT THE WINDOW, ITS "NOT MANY" AND "LESS OFTEN". WHEN QUESTIONED IF SHE UNDERSTANDS WHAT SHE IS EXPERIENCING IS HALLUCINATIONS, PT STATED "WELL, I DONT KNOW EITHER WAY, ALL I KNOW IS THAT IM FEELING A LOT BETTER AND IM GOING TO REHAB TO HELP ME EVEN MORE". PT DENIES SI/HI AND ANXIETY. PT MEDICATION COMPLIANT WITHOUT DIFFICULTY AFTER REVIEW. PT ALSO RECEIVED PRN TYLENOL ORDERED AT 2041 FOR C/O LOWER BACK AND SHOULDER PAIN WITH A RATING 5/10. PT AMBULATORY WITH A STEADY GAIT, CONTINENT OF BOWEL AND BLADDER, INDEPENDENT IN ADLS. PT CURRENTLY LAYING DOWN WITH EYES CLOSED, RESPIRATIONS EASY AND REGULAR. NO DISTRESS NOTED. P-CONTINUE TO MONITOR MOOD AND BEHAVIORS. MAINTAIN Q 15 MIN CHECKS AND PRN FOR SAFETY.
--- NOTE | 2020-04-16 05:38 | NUR ---
PATIENT OBSERVED ON Q 15 MIN CHECKS TO HAVE SLEPT APPROX 4 HOURS INTERRUPTED THIS SHIFT. NO DISTRESS NOTED.
--- NOTE | 2020-04-16 05:55 | NUR ---
24 HOUR CHART CHECK COMPLETED.
--- NOTE | 2020-04-16 07:15 | NUR ---
OT NOTE Prior to OT session therapist called U and talked to nursing staff to get permission to treat pt. Paige present for observation only. Upon arrival pt was laying supine in olivia agreeable to 15 minute OT session. Identified by name and date of with no complaints. Transfer supine to EOB SBA. While at EOB pt donned B shoes, bending at the waist at SBA. Sitting balance good-. sit-stand Ferdinand to correct LOB when standing. Functional mobility from EOB to bathroom CGA without assistive device. Py stood sink side and completed oral hygiene at SBA. Functional mobility from bathroom to hallway and dining hernandez CGA. Pts balance was challenged by weight shifting/crossing midline at CGA. Balance was F+. Throughout session pt presented to OT with unsteady stance during mobility. Pt left in dining hernandez with MHW present. Continue d/c recommended SNF. Elvira Guerrier. THO/WILMAN Hutchins/Cheri
[2020-04-16 07:53] VITALS: BP 146/76
--- NOTE | 2020-04-16 08:57 | NUR ---
Spoke with Jagjit at [facility] and made referral for pt. Jagjit will verify pt's insurance. Await return call.
--- NOTE | 2020-04-16 09:20 | NUR ---
DR. LESLIE NOTIFIED OF PATIENT BEING DISCHARGED.
--- NOTE | 2020-04-16 09:33 | NUR ---
PRN TYLENOL INEFFECTIVE.
--- NOTE | 2020-04-16 10:30 | NUR ---
Treatment Plan meeting was held this a.m. with Dr. Seymour, RN, AT and Construction Mgr. Plan for discharge today with Pt. returning Home. Follow up appointments have been scheduled with Pt. to follow with [facility] Dr. Saucedo for Primary care Follow Up 04/24/2020 1:15 p.m. and Mental Health Follow up at [facility] with Yin Jenkins 04/21/2020 at 1:15 p.m. Pt. is referred to [facility].
[2020-04-16] MEDS ORDERED: RISPERIDONE1 MG PO (10:52)
[2020-04-16] MEDS ORDERED: DIVALPROEX SOD500 MG PO (10:52)
--- NOTE | 2020-04-16 11:46 | NUR ---
AM GROUP PT ATTENDED MORNING GROUP THERAPY AND PARTICIPATED BY WORKING ON HER BIRDHOUSE AND SOCIALIZING WITH THIS IRONER SOCK. PT IS EXCITED TO BE DISCHARGED FROM THE UNIT THIS EVENING.
--- NOTE | 2020-04-16 13:02 | NUR ---
Received Call back from Neha at [facility]. Pt. is scheduled for 04/22/2020 next week to be at the Facility at 8:30 a.m. Program Runs from 9:00-12:00 She is Schedule Mon, , Monday next week. Neha will call patient to facilitate further arrangements once Pt. is home
--- NOTE | 2020-04-16 13:11 | NUR ---
DR. RONDON ON UNIT TO ASSESS PT.
--- NOTE | 2020-04-16 13:16 | NUR ---
PRN TYLENOL FOR HEADACHE EFFECTIVE. PAIN 2.
--- NOTE | 2020-04-16 14:55 | NUR ---
Pt participated in group discussion this AM about the benefits of having pets. Pt was supportive of her peers. She shared about her current pets and ones from the past. She was appropriate in conversation. No delusions were voiced.
--- NOTE | 2020-04-16 14:58 | NUR ---
Met with pt who expressed that she feels ready to return home. Discussed discharge plan of attending [facility] IOP. Pt denies delusions and expressed that she is looking forward to the IOP.
--- NOTE | 2020-04-16 14:59 | NUR ---
Pt discharging today to home. Follow-up was scheduled with Jadyn Cassidy NP at [facility]. Pt will also attend the [facility] IOP beginning on 04/22. While at [facility], pt's paranoid delusions resolved. Pt denies follow-up treatment for addictions. Pt participated in the [facility] programming and was pleasant and cooperative.
--- NOTE | 2020-04-16 15:30 | NUR ---
REVIEWED DISCHARGED INSTRUCTIONS WITH PT AND SIGNED. ALL BELONGINGS GATHERED. PT ASSISTED TO W/C. PT ASSISTED OFF UNIT WITH D/C INSTRUCTIONS, AND BELONGINGS WITH STAFF TO PERSONAL CAR.
--- NOTE | 2020-04-17 07:43 | NUR ---
Discharge clinical left of Finn's voicemail at [facility]
--- NOTE | 2020-04-17 08:30 | NUR ---
OCCUPATIONAL THERAPY CO-SIGN I approve of the Occupational Therapy notes written above. BOB JAMES OTR/Cheri
== END 2020-04-16 15:37 | disposition home or self-care (01) | DRG 885 ==
LOC: ED 16:15 → 3N 22:50
PROVIDERS: Emergency Medicine; ADMIT Psychiatry & Neurology Psychiatry; ATTEND Psychiatry & Neurology Psychiatry
DX: F31.2 Bipolar disorder, current episode manic severe with psychotic features (principal); F15.20 Other stimulant dependence, uncomplicated; F14.20 Cocaine dependence, uncomplicated; E16.2 Hypoglycemia, unspecified; Z20.828 Contact with and (suspected) exposure to other viral communicable diseases; R80.9 Proteinuria, unspecified; F17.210 Nicotine dependence, cigarettes, uncomplicated; F12.20 Cannabis dependence, uncomplicated; F29 Unspecified psychosis not due to a substance or known physiological condition; M19.90 Unspecified osteoarthritis, unspecified site; I10 Essential (primary) hypertension; Z88.0 Allergy status to penicillin; Z88.1 Allergy status to other antibiotic agents; Z88.8 Allergy status to other drugs, medicaments and biological substances; Z71.6 Tobacco abuse counseling; Z90.710 Acquired absence of both cervix and uterus; Z83.3 Family history of diabetes mellitus; Z82.0 Family history of epilepsy and other diseases of the nervous system; Z82.49 Family history of ischemic heart disease and other diseases of the circulatory system

== ENCOUNTER 2020-05-10 07:57 | Emergency (ER) | payer OTHER ==
[~2020-05-10] VITALS: Ht 165.1 cm; Wt 59.9 kg
[~2020-05-10 07:57] MED LIST changes: +DIVALPROEX SOD500 MG PO; +GUMMI BEAR MUL1 EACH PO; +IBU800 MG PO; +RISPERIDONE1 MG PO
[2020-05-10 08:02] VITALS: BP 148/89
[2020-05-10] MEDS ORDERED: TYLENOL EXTRA500 M2 PO (08:55)
[2020-05-10] MEDS ORDERED: CELECOXIB200 M1 PO (08:55)
== END 2020-05-10 09:03 | disposition home or self-care (01) ==
LOC: ED 07:57
DX: M25.551 Pain in right hip (principal); G89.29 Other chronic pain; F31.9 Bipolar disorder, unspecified; F41.9 Anxiety disorder, unspecified; I10 Essential (primary) hypertension; G43.909 Migraine, unspecified, not intractable, without status migrainosus; M19.90 Unspecified osteoarthritis, unspecified site; Z88.0 Allergy status to penicillin; Z88.8 Allergy status to other drugs, medicaments and biological substances; Z79.899 Other long term (current) drug therapy

== ENCOUNTER → 2020-11-24 | Outpatient (CLI) | payer MEDICARE ==
[~2020-11-24] MED LIST changes: +CELECOXIB200 M1 PO; +TYLENOL EXTRA500 M2 PO
== END | disposition home or self-care (01) ==
LOC: RAD 09:42
PROVIDERS: ATTEND Internal Medicine
DX: M25.551 Pain in right hip (principal)

== ENCOUNTER → 2021-02-01 | Outpatient (CLI) | payer MEDICARE | END | disposition home or self-care (01) | LOC: MAMMO 13:00 | PROVIDERS: ATTEND Internal Medicine | DX: Z12.31 Encounter for screening mammogram for malignant neoplasm of breast (principal); N64.89 Other specified disorders of breast ==

== ENCOUNTER 2021-05-19 13:47 | Emergency (ER) | payer MEDICARE ==
[2021-05-19 17:00] VITALS: BP 169/98
== END 2021-05-19 19:02 | disposition short-term general hospital (02) ==
LOC: ED 13:47
DX: S06.5X0A Traumatic subdural hemorrhage without loss of consciousness, initial encounter (principal); F17.200 Nicotine dependence, unspecified, uncomplicated; Z88.0 Allergy status to penicillin; Z88.1 Allergy status to other antibiotic agents; Z88.8 Allergy status to other drugs, medicaments and biological substances; Z79.899 Other long term (current) drug therapy; W18.39XA Other fall on same level, initial encounter; Y93.89 Activity, other specified; Y92.89 Other specified places as the place of occurrence of the external cause; Y99.8 Other external cause status

== ENCOUNTER 2021-06-01 12:33 | Emergency (ER) | payer MEDICARE ==
[~2021-06-01] VITALS: Wt 69.4 kg
[2021-06-01 12:47] VITALS: BP 147/98
[2021-06-01] MEDS ORDERED: LEVOFLOXACIN500 MG PO (18:34)
== END 2021-06-01 18:43 | disposition home or self-care (01) ==
LOC: ED 12:33
DX: S02.32XA Fracture of orbital floor, left side, initial encounter for closed fracture (principal); S63.502A Unspecified sprain of left wrist, initial encounter; R42 Dizziness and giddiness; F17.200 Nicotine dependence, unspecified, uncomplicated; Z88.0 Allergy status to penicillin; Z88.1 Allergy status to other antibiotic agents; Z88.6 Allergy status to analgesic agent; Z79.2 Long term (current) use of antibiotics; Z79.899 Other long term (current) drug therapy; Z90.711 Acquired absence of uterus with remaining cervical stump; Z98.890 Other specified postprocedural states; W19.XXXA Unspecified fall, initial encounter; Y93.89 Activity, other specified; Y92.89 Other specified places as the place of occurrence of the external cause; Y99.8 Other external cause status

== ENCOUNTER → 2021-10-08 | Outpatient (CLI) | payer MEDICARE ==
[~2021-10-08] MED LIST changes: +LEVOFLOXACIN500 MG PO
== END | disposition home or self-care (01) ==
LOC: RAD 12:19
PROVIDERS: ATTEND Internal Medicine
DX: M16.0 Bilateral primary osteoarthritis of hip (principal)

== ENCOUNTER 2021-12-31 10:25 | Emergency (ER) | payer MEDICARE ==
[~2021-12-31] VITALS: Ht 165.1 cm; Wt 68.5 kg
[2021-12-31] MEDS ORDERED: LISINOPRIL20 MG PO (10:36)
[2021-12-31] MEDS ORDERED: VENLAFAXINE HY150 M2 PO (10:40)
[2021-12-31] MEDS ORDERED: MIRTAZAPINE30 M2 PO (10:41)
[2021-12-31] MEDS ORDERED: DIVALPROEX SOD250 M1 PO (10:42)
[2021-12-31] MEDS ORDERED: DIVALPROEX SOD500 M1 PO (10:43)
[2021-12-31] MEDS ORDERED: ATORVASTATIN CA10 M1 PO (10:44)
[2021-12-31] MEDS ORDERED: HYDROXYZINE PAM50 MG PO (10:45)
[2021-12-31 10:59] LABS: BASO % 0.5 % (0.0-1.0); EOS # 0.1 10*3/uL (0.0-0.4); EOS % 1.4 % (1.0-4.0); HEMATOCRIT 43.7 % (37.0-47.0); LYMPH # 2.1 10*3/uL (1.3-4.4); LYMPH % 24.1 % (27.0-41.0); MEAN CELL VOLUME 92.8 fl (81.0-99.0); MEAN CORPUSCULAR HGB 30.4 pg (27.0-31.0); MEAN CORPUSCULAR HGB CONC 32.7 g/dl (33.0-37.0); MEAN PLATELET VOLUME 12.2 fl (9.6-12.3); MONO # 0.8 10*3/uL (0.1-1.0); MONO % 9.4 % (3.0-9.0); NEUT # 5.5 10*3/uL (2.3-7.9); NEUT % 63.7 % (47.0-73.0); PLATELET COUNT AUTOMATED 205 10*3/uL (130-400); RED BLOOD COUNT 4.71 10*6/uL (4.10-5.10); WHITE BLOOD COUNT 8.6 10*3/uL (4.8-10.8)
[2021-12-31 11:16] LABS: ALKALINE PHOSPHATASE 88 U/L (45-117); BUN 18 mg/dl (7-24); CHLORIDE 112 mmol/L (98-107); CREATININE 1.31 mg/dL (0.55-1.02); POTASSIUM 4.3 mmol/L (3.5-5.1); SGOT/AST 27 IU/L (3-35); SGPT/ALT 27 U/L (12-78); SODIUM 143 mmol/L (136-145); TOTAL PROTEIN 7.1 gm/dL (6.4-8.2)
[2021-12-31 11:27] LABS: ETHYL ALCOHOL < 3.0 mg/dl (<3)
[2021-12-31 13:49] LABS: BILIRUBIN Negative (Negative); BLOOD Negative (Negative); CLARITY Clear (Clear); COLOR Yellow (Yellow); GLUCOSE Negative (Negative); KETONE Trace (Negative); LEUKO ESTERASE Negative (Negative); NITRITE Negative (Negative); PH 6.5 (4.5-8.0)
[2021-12-31 13:56] LABS: URINE AMPHETAMINES < 1000 (1000ng/ml); URINE BARBITURATES < 200 (200ng/ml); URINE BENZODIAZEPINES < 200 (200ng/ml); URINE CANNABINOIDS (THC) > 50 (50ng/ml); URINE COCAINE < 300 (300ng/ml); URINE METHADONE < 300 (300ng/ml); URINE OPIATES < 300 (300ng/ml)
[2021-12-31 13:57] LABS: URINE PHENCYCLIDINE < 25 (25ng/ml)
[2021-12-31 14:04] LABS: MUCOUS 1+; WBC 0-2 wbc/hpf (0-5)
[2021-12-31 18:24] VITALS: BP 158/97
== END 2022-01-01 10:39 ==
LOC: ED 10:25
PROVIDERS: Family Medicine
DX: F31.9 Bipolar disorder, unspecified (principal); Z20.822 Contact with and (suspected) exposure to COVID-19

== ENCOUNTER → 2023-01-26 | Outpatient (CLI) | payer OTHER ==
[~2023-01-26] MED LIST changes: +ATORVASTATIN CA10 M1 PO; +DIVALPROEX SOD250 M1 PO; +DIVALPROEX SOD500 M1 PO; +HYDROXYZINE PAM50 MG PO; +LISINOPRIL20 MG PO; +MIRTAZAPINE30 M2 PO; +VENLAFAXINE HY150 M2 PO
== END | disposition home or self-care (01) ==
LOC: US 02:24
PROVIDERS: ATTEND Nurse Practitioner Family
DX: K74.60 Unspecified cirrhosis of liver (principal)

== ENCOUNTER 2023-03-07 05:16 | Emergency (ER) | payer OTHER ==
[~2023-03-07] VITALS: Ht 165.1 cm; Wt 68.0 kg
[2023-03-07 06:05] LABS: HEMATOCRIT 51.2 % (37.0-47.0); MEAN CELL VOLUME 95.2 fl (81.0-99.0); MEAN CORPUSCULAR HGB 29.9 pg (27.0-31.0); MEAN CORPUSCULAR HGB CONC 31.4 g/dl (33.0-37.0); MEAN PLATELET VOLUME 12.6 fl (9.6-12.3); PLATELET COUNT AUTOMATED 265 10*3/uL (130-400); RED BLOOD COUNT 5.38 10*6/uL (4.10-5.10); RED CELL DISTRI WIDTH 13.2 % (0-14.5); WHITE BLOOD COUNT 27.9 10*3/uL (4.8-10.8)
[2023-03-07 06:11] LABS: MANUAL DIFF REFLEX YES
[2023-03-07 06:16] LABS: POTASSIUM 3.3 mmol/L (3.4-5.1); TOTAL PROTEIN 7.6 gm/dL (6.0-8.0)
[2023-03-07 06:40] LABS: PLATELET SUFFICIENCY NORMAL (NORMAL); TOTAL CELLS COUNTED 100 #CELLS
[2023-03-07 08:46] LABS: HEMATOCRIT 47.1 % (37.0-47.0); MEAN CELL VOLUME 93.8 fl (81.0-99.0); MEAN CORPUSCULAR HGB 30.3 pg (27.0-31.0); MEAN CORPUSCULAR HGB CONC 32.3 g/dl (33.0-37.0); MEAN PLATELET VOLUME 12.3 fl (9.6-12.3); PLATELET COUNT AUTOMATED 229 10*3/uL (130-400); RED BLOOD COUNT 5.02 10*6/uL (4.10-5.10); RED CELL DISTRI WIDTH 13.2 % (0-14.5); WHITE BLOOD COUNT 29.8 10*3/uL (4.8-10.8)
[2023-03-07 09:07] LABS: MANUAL DIFF REFLEX YES; POTASSIUM 3.7 mmol/L (3.4-5.1); TOTAL PROTEIN 6.5 gm/dL (6.0-8.0)
[2023-03-07 09:16] LABS: TOTAL CELLS COUNTED 100 #CELLS
[2023-03-07 09:17] LABS: PLATELET SUFFICIENCY NORMAL (NORMAL)
[2023-03-07 17:24] VITALS: BP 144/92
== END 2023-03-07 17:45 | disposition short-term general hospital (02) ==
LOC: ED 05:16
PROVIDERS: Emergency Medicine; Student in an Organized Health Care Education/Training Program
DX: K92.2 Gastrointestinal hemorrhage, unspecified (principal); K55.9 Vascular disorder of intestine, unspecified; G43.909 Migraine, unspecified, not intractable, without status migrainosus; I10 Essential (primary) hypertension; M19.90 Unspecified osteoarthritis, unspecified site; F31.9 Bipolar disorder, unspecified; Z88.0 Allergy status to penicillin; Z88.1 Allergy status to other antibiotic agents; Z88.8 Allergy status to other drugs, medicaments and biological substances; Z98.890 Other specified postprocedural states; Z90.711 Acquired absence of uterus with remaining cervical stump; F17.200 Nicotine dependence, unspecified, uncomplicated; F12.10 Cannabis abuse, uncomplicated; F14.90 Cocaine use, unspecified, uncomplicated; Z20.822 Contact with and (suspected) exposure to COVID-19